=== PATIENT | female | born 1965 | race Caucasian/White ===

== ENCOUNTER 2024-08-27 11:00 | Emergency (ER) | payer OTHER ==
[~2024-08-27] VITALS: Ht 157.5 cm; Wt 65.0 kg
[2024-08-27 11:06] VITALS: TEMP 97.8
[2024-08-27] MEDS ORDERED: HYDR25TA2 PO (11:09)
[2024-08-27] MEDS ORDERED: LISI-894 PO (11:09)
[2024-08-27] MEDS ORDERED: LISI1TAB53 PO (12:21)
[2024-08-27] MEDS: KETOROLAC TROMETHAMINE 30 MG/ML VIAL IM ONE (12:26)
[2024-08-27 12:55] VITALS: BP 143/90; PULSE 92; RESP 20; O2SAT 99
[2024-08-27] MEDS ORDERED: IBUP-1492 PO (12:57)
== END 2024-08-27 13:15 | disposition home or self-care (01) ==
LOC: EMS 11:03
DX: M06.841 Other specified rheumatoid arthritis, right hand (principal); I10 Essential (primary) hypertension; F17.210 Nicotine dependence, cigarettes, uncomplicated; Z79.899 Other long term (current) drug therapy
CPT/HCPCS: 99283; 73130; 96372; J1885